=== PATIENT | male | born 1940 | race Caucasian/White ===

== ENCOUNTER 2020-05-22 13:18 | Inpatient (IN) ==
[2020-05-22] MEDS ORDERED: Naloxone 0.4 MG/ML INJ IVP PRN ×2 (16:03→23:43)
[2020-05-22] MEDS ORDERED: Ondansetron 4 MG/2 ML VIAL IVP PRN ×2 (16:03→23:43)
[2020-05-22 16:37] LABS: Adenovirus Not Detected (Not Detect); Bordetella Pertussis Not Detected (Not Detect); Chlamydophila pneumoniae Not Detected (Not Detect); Coronavirus 229E Not Detected (Not Detect); Coronavirus HKU1 Not Detected (Not Detect); Coronavirus NL63 Not Detected (Not Detect); Coronavirus OC43 Not Detected (Not Detect); Human Metapneumovirus Not Detected (Not Detect); Human Rhinovirus/Enterovirus Not Detected (Not Detect); Influenza A Subtype 2009 H1 Not Detected (Not Detect); Influenza B Not Detected (Not Detect); Mycoplasma pneumoniae Not Detected (Not Detect); Parainfluenza Virus 1 Not Detected (Not Detect); Parainfluenza Virus 2 Not Detected (Not Detect); Parainfluenza Virus 3 Not Detected (Not Detect); Parainfluenza Virus 4 Not Detected (Not Detect); Respiratory Syncytial Virus Not Detected (Not Detect)
[2020-05-22] MEDS ORDERED: *HR* LORazepam 2 MG/ML VIAL IVP PRN ×2 (16:51→23:43)
[2020-05-22] MEDS: Ringers Solution, Lactated 1,000 ML IVC SCH ×2 (18:30→23:30)
[2020-05-22 18:57] LABS: Prothrombin Time 11.3 Seconds (9.4-12.1)
[2020-05-22] MEDS ORDERED: Famotidine 20 MG/2 ML VIAL IVP ONE (19:40)
[2020-05-22] MEDS ORDERED: Dexamethasone 4 MG/ML VIAL ONE (21:33)
[2020-05-22] MEDS ORDERED: *HR* FentaNYL (PF) 100 MCG/2 ML VIAL ONE ×2 (21:35→22:14)
[2020-05-22] MEDS ORDERED: *HR* Rocuronium Bromide 50 MG/5 ML VIAL ONE (21:56)
[2020-05-22] MEDS ORDERED: Neostigmine Methylsulfate 3 MG/3 ML SYRINGE ONE (21:56)
[2020-05-22] MEDS ORDERED: Ondansetron 4 MG/2 ML VIAL ONE (21:56)
[2020-05-22] MEDS ORDERED: *HR* Propofol 200 MG/20 ML VIAL IVP ONE (21:56)
[2020-05-22] MEDS ORDERED: *HR* Succinylcholine 200 MG/10 ML VIAL IVP ONE (21:56)
[2020-05-22] MEDS ORDERED: Lidocaine -MPF 1% 5 ML AMPUL ONE (21:57)
[2020-05-23] MEDS ORDERED: MetroNIDAZOLE 500 MG/100 ML 500 MG/100 ML BAG IVPB SCH
[2020-05-23] MEDS: Acetaminophen IV 1,000 MG/100 ML INFUS..BTL IVPB SCH ×5 (00:29→23:55)
[2020-05-23] MEDS: Ringers Solution, Lactated 1,000 ML IVC SCH ×2 (00:30→12:39)
[2020-05-23] MEDS: MetroNIDAZOLE 500 MG/100 ML 500 MG/100 ML BAG IVPB SCH ×3 (00:47→16:45)
[2020-05-23 05:41] LABS: Basophils % 0.2 %; Eosinophils % 0.1 %; Hematocrit 35.4 % (37.5-50.1); Hemoglobin 11.8 g/dL (12.9-16.9); Immature Granulocytes % 0.6 % (0-4); Lymphocytes # 0.6 K/mcL (0.6-4.6); Lymphocytes % 3.4 %; Mean Corpuscular HGB Conc 33.3 g/dL (31.6-35.5); Mean Corpuscular Hemoglobin 31.9 pg (28.0-33.3); Mean Corpuscular Volume 95.7 fL (83.0-100.0); Mean Platelet Volume 11.3 fL (9.4-12.4); Monocytes % 5.7 %; Neutrophils # 15.9 K/mcL (1.6-8.9); Platelet Count 188 K/mcL (140-400); Red Cell Distribution Width 14.6 % (11.5-14.5); White Blood Count 17.7 K/mcL (4.3-11.1)
[2020-05-23 05:45] LABS: BUN/Creatinine Ratio 24 (6-26); Blood Urea Nitrogen 23 mg/dL (8-23); Calcium 8.4 mg/dL (8.6-10.3); Carbon Dioxide 23 mEq/L (23-29); Chloride 103 mEq/L (98-107); Glucose 142 mg/dL (70-105); Magnesium 2.1 mg/dL (1.6-2.6); Osmolality,Calculated 284 (280-300); Potassium 4.2 mEq/L (3.5-5.1); Sodium 134 mEq/L (136-145); eGFR For African Americans > 60 (> 60); eGFR For Non-African Americans > 60 (> 60)
[2020-05-23] MEDS ORDERED: *HR* Enoxaparin 40 MG/0.4 ML SYRINGE SQ SCH ×2 (06:00)
[2020-05-23] MEDS ORDERED: levoFLOXacin 750 MG/150 ML 750 MG/150 ML BAG IVPB SCH (09:00)
[2020-05-23] MEDS: levoFLOXacin 750 MG/150 ML 750 MG/150 ML BAG IVPB SCH (09:47)
[2020-05-23] MEDS: Menthol 9.1 MG LOZENGE MM PRN (12:36)
[2020-05-23] MEDS: diazePAM 5 MG TABLET PO SCH (20:17)
[2020-05-24] MEDS: MetroNIDAZOLE 500 MG/100 ML 500 MG/100 ML BAG IVPB SCH ×2 (00:01→08:44)
[2020-05-24 03:26] LABS: Basophils % 0.3 %; Eosinophils # 0.1 K/mcL (0.0-0.6); Eosinophils % 0.5 %; Hematocrit 31.8 % (37.5-50.1); Hemoglobin 10.8 g/dL (12.9-16.9); Immature Granulocytes % 1.6 % (0-4); Lymphocytes # 1.4 K/mcL (0.6-4.6); Lymphocytes % 10.3 %; Mean Corpuscular Hemoglobin 32.6 pg (28.0-33.3); Mean Corpuscular Volume 96.1 fL (83.0-100.0); Mean Platelet Volume 11.2 fL (9.4-12.4); Monocytes # 1.2 K/mcL (0.0-1.3); Monocytes % 8.9 %; Neutrophils # 10.9 K/mcL (1.6-8.9); Platelet Count 216 K/mcL (140-400); Red Blood Count 3.31 M/mcL (4.19-5.50); Red Cell Distribution Width 14.7 % (11.5-14.5); Segmented Neutrophils % 78.4 %; White Blood Count 13.9 K/mcL (4.3-11.1)
[2020-05-24 03:41] LABS: BUN/Creatinine Ratio 22 (6-26); Blood Urea Nitrogen 19 mg/dL (8-23); Carbon Dioxide 22 mEq/L (23-29); Chloride 107 mEq/L (98-107); Glucose 109 mg/dL (70-105); Osmolality,Calculated 285 (280-300); Potassium 4.1 mEq/L (3.5-5.1); Sodium 136 mEq/L (136-145); eGFR For African Americans > 60 (> 60); eGFR For Non-African Americans > 60 (> 60)
[2020-05-24] MEDS: Acetaminophen IV 1,000 MG/100 ML INFUS..BTL IVPB SCH ×2 (06:01→13:10)
[2020-05-24] MEDS: levoFLOXacin 750 MG/150 ML 750 MG/150 ML BAG IVPB SCH (08:44)
[2020-05-24] MEDS: diazePAM 5 MG TABLET PO SCH (08:45)
[2020-05-24 10:11] VITALS: BP 134/75
[2020-05-24] MEDS: Menthol 9.1 MG LOZENGE MM PRN (13:13)
== END 2020-05-24 16:31 | disposition home or self-care (01) | DRG 339 ==
LOC: CDU → SUATTDRO 16:04 → 3ANU 17:07
PROVIDERS: ADMIT Family Medicine; ATTEND Internal Medicine